=== PATIENT | female | born 1995 | race Caucasian/White ===

== ENCOUNTER → 2018-09-30 | Outpatient (CLI) | payer BC ==
[~2018-09-30] MED LIST: BENTYL10 MG PO; HYDR1TAB94 PO; ONDA4ODT MM; PROM25 PO; Pepcid40 MG PO; Verotin-Gr Cap1 EACH
== END | disposition home or self-care (01) ==
LOC: LAB SHORT 15:18 → LAB 15:18
DX: Z34.80 Encounter for supervision of other normal pregnancy, unspecified trimester (principal)
CPT/HCPCS: 87081; 87653

== ENCOUNTER 2018-10-23 09:58 | Inpatient (IN) | payer BC ==
[~2018-10-23] VITALS: Ht 162.6 cm; Wt 0.4 kg
[2018-10-23 10:43] LABS: BASOPHILS ABSOLUTE AUTO 0.02 K/mm3 (0.00-0.23); BASOPHILS PERCENT AUTO 0 % (0-2); EOSINOPHILS ABSOLUTE AUTO 0.28 K/mm3 (0.00-0.68); EOSINOPHILS PERCENT AUTO 2 % (0-6); Hematocrit 40.1 % (33.0-51.0); Hemoglobin 13.1 g/dL (11.5-16.0); IMMATURE GRAN ABSOLUTE AUTO 0.07 K/mm3 (0.00-0.10); IMMATURE GRAN PERCENT AUTO 1 % (0-1); LYMPHOCYTES ABSOLUTE AUTO 2.56 K/mm3 (0.84-5.20); LYMPHOCYTES PERCENT AUTO 21 % (21-46); MONOCYTES ABSOLUTE AUTO 0.63 K/mm3 (0.16-1.47); MONOCYTES PERCENT AUTO 5 % (4-13); Mean Corpuscular HGB 27.2 pg (26.0-34.0); Mean Corpuscular HGB Conc 32.7 g/dL (31.5-36.5); Mean Corpuscular Volume 83 fL (80-100); Mean Platelet Volume 9.9 fL (9.1-12.4); NEUTROPHILS ABSOLUTE AUTO 8.73 K/mm3 (1.96-9.15); NEUTROPHILS PERCENT AUTO 71 % (41-73); Platelet Count 221 K/mm3 (150-400); RDW Coefficient Variation 12.4 % (11.7-14.2); RDW Standard Deviation 37.9 fL (35.1-46.3); Red Blood Cell Count 4.81 M/mm3 (3.80-5.20); White Blood Cell Count 12.29 K/mm3 (4.00-11.30)
--- NOTE | 2018-10-23 21:00 | NUR ---
PATIENT C/O CHEST PAIN STATES THAT SHE HAS A DULL ACHE IN HER CHEST THAT INCREASES WITH AMBULATION. PATIENT RATES PAIN AT A 2 AND BELIEVES IT TO BE MUSCLE PAIN RELATED TO PUSHING DURING DELIVERY. VITALS ARE STABLE AND WITHIN NORMAL RANGE, DELICATESSEN STORE MANAGER NOTIFIED. MOTRIN ADMINISTERED.
--- NOTE | 2018-10-24 00:58 | NUR ---
PATIENT C/O INCREASED ABDOMINAL PAIN RATES PAIN AT A 5 DESCRIBES CRAMPING, PATIENT OFFERED PERCOCET, PATIENT REFUSED SAYING THAT PERCOCET MAKES HER VOMIT. TYLENOL WAS GIVEN AND A HEATING PAD WAS PROVIDED.
[2018-10-24 05:32] LABS: Hematocrit 34.6 % (33.0-51.0); Hemoglobin 11.4 g/dL (11.5-16.0); Mean Corpuscular HGB 28.1 pg (26.0-34.0); Mean Corpuscular HGB Conc 32.9 g/dL (31.5-36.5); Mean Corpuscular Volume 85 fL (80-100); Mean Platelet Volume 9.9 fL (9.1-12.4); Platelet Count 195 K/mm3 (150-400); RDW Coefficient Variation 12.6 % (11.7-14.2); RDW Standard Deviation 38.2 fL (35.1-46.3); Red Blood Cell Count 4.06 M/mm3 (3.80-5.20); White Blood Cell Count 13.85 K/mm3 (4.00-11.30)
[2018-10-24] MEDS ORDERED: DOCU100 PO (10:19)
[2018-10-24] MEDS ORDERED: Ferrous Sulfat325 M2 PO (10:19)
--- NOTE | 2018-10-24 11:56 | NUR ---
DISCHARGE INSTRUCTIONS GIVEN. ALL QUESTIONS ANSWERED.
--- NOTE | 2018-10-24 12:20 | NUR ---
PATIENT DISCHARGED HOME AT 1220.
== END 2018-10-24 12:20 | disposition home or self-care (01) | DRG 807 ==
LOC: OBS 09:58 → BC 10:04 → OBS 10:12 → BC 10:16
PROVIDERS: ADMIT Advanced Practice Midwife
PROC: 10E0XZZ Delivery of Products of Conception, External Approach (ICD-10-PCS; principal; 2018-10-23)
DX: O80 Encounter for full-term uncomplicated delivery (principal); Z37.0 Single live birth; Z3A.39 39 weeks gestation of pregnancy
CPT/HCPCS: 36415; 85025; 85027; J1885; J2590; J7120

== ENCOUNTER → 2021-05-29 | Outpatient (CLI) | payer OTHER ==
[~2021-05-29] MED LIST changes: +DOCU100 PO; +Ferrous Sulfat325 M2 PO
== END | disposition home or self-care (01) ==
LOC: LAB 15:15 → LAB SHORT 15:15
DX: J02.9 Acute pharyngitis, unspecified (principal)
CPT/HCPCS: 87081

== ENCOUNTER 2025-01-12 10:03 | Day surgery (SDC) | payer OTHER ==
[~2025-01-12] VITALS: Ht 162.6 cm; Wt 94.3 kg
[2025-01-12] VITALS (14 sets, daily range): BP systolic 101–157; BP diastolic 57–102
[~2025-01-12 10:03] MED LIST changes: +AMLO5 PO; +BUSP5 PO; +Prozac40 MG PO
[2025-01-12] MEDS ORDERED: Tranexamic Acid 100 ML IV SCH (10:50)
[2025-01-12] MEDS ORDERED: Lactated Ringer's 1,000 ML IV SCH (10:50)
[2025-01-12] MEDS ORDERED: CeFAZolin Sodium 2,000 MG in NS 100 ML IV SCH (10:50)
[2025-01-12] MEDS ORDERED: BUPR100ER PO (10:57)
[2025-01-12] MEDS ORDERED: Orphenadrine C100 MG PO (10:58)
[2025-01-12] MEDS ORDERED: FentaNYL Citrate 50 MCG/ML 2 ML Injection ONE ×4 (11:26→15:54)
[2025-01-12] MEDS ORDERED: propofoL 20 ML IV ONE (11:26)
[2025-01-12] MEDS ORDERED: Midazolam HCl 1MG / ML 2ML Vial ONE (11:27)
[2025-01-12] MEDS ORDERED: Bupivacaine 0.5% HCl 5 MG/ML 30MLVIAL ONE (11:29)
[2025-01-12] MEDS ORDERED: Bupivacaine HCl 0.25% 30 ML Injection ONE (11:29)
[2025-01-12] MEDS ORDERED: EPINEPhrine HCl 1 MG / ML 30ML Vial ONE (12:08)
--- NOTE | 2025-01-12 12:13 | NUR ---
DR. STARKS AT BESIDE. TIME OUT DONE FOR SAPHENOUS/GENICULAR NERVE BLOCKS. O2 AT 2 L N/C. CONTINUOUS SPO2 IN PLACE. MEDS PER DR. STARKS-SEE ANESTHESIA RECORD.
[2025-01-12] MEDS ORDERED: Vancomycin HCl 1000 MG ADDvantage ONE (13:32)
[2025-01-12] MEDS ORDERED: Albuterol 2.5 MG/3 ML VIAL INH PRN (14:20)
[2025-01-12] MEDS ORDERED: Atropine Sulfate 0.1 MG/ML 10ML SYR IV PRN (14:20)
[2025-01-12] MEDS ORDERED: Ondansetron HCl 2 MG / ML 2ML Vial IV PRN (14:25)
[2025-01-12] MEDS ORDERED: HYDROmorphone HCl/Pf 1MG SYR IV PRN (14:25)
[2025-01-12] MEDS ORDERED: FentaNYL Citrate 50 MCG/ML 2 ML Injection IV PRN ×2 (14:25)
[2025-01-12] MEDS ORDERED: Metoclopramide HCl 5MG / ML 2ML Vial IV PRN (14:25)
[2025-01-12] MEDS ORDERED: Labetalol HCL 5 MG/ML 4ML Injection (Single Dose) IV PRN (14:25)
[2025-01-12] MEDS ORDERED: Ketorolac Tromethamine 30mg Vial ONE (15:01)
[2025-01-12] MEDS ORDERED: HYDROmorphone HCl/Pf 1MG SYR ONE (15:14)
[2025-01-12] MEDS ORDERED: Metoclopramide HCl 5MG / ML 2ML Vial ONE (15:19)
[2025-01-12] MEDS ORDERED: OxyCODONE HCL 5 MG TAB PO PRN (16:00)
--- NOTE | 2025-01-12 16:37 | NUR ---
DISCHARGE PT A&OX4/VSS/RA/C&DBS/FOLLOWS COMMANDS/TALKING-PLEASANT/EAR NOSE AND THROAT SPECIALIST BEDSIDE, DC INS PROVIDED - REP UNDERSTANDING INCLUDING CRUTCHES/NWB/PAIN MANAGEMENT/ELEVATED/ ICED/FU APPT, LEFT VIA WC WITH RN TO GO HOME WITH EAR NOSE AND THROAT SPECIALIST WITH ALL PERSONAL POSSESSIONS.
== END 2025-01-12 23:37 | disposition home or self-care (01) ==
LOC: ORSCMMR 10:03 → ORD 11:15 → ORSCMMR 11:15 → ORSCSDS 11:15 → ORSCMMR 23:37 → ORSCSDS 01-24 07:30
PROVIDERS: Orthopaedic Surgery Sports Medicine
PROC: 0MRN47Z Replacement of Right Knee Bursa and Ligament with Autologous Tissue Substitute, Percutaneous Endoscopic Approach (ICD-10-PCS; principal; 2025-01-12 11:15)
DX: S83.511A Sprain of anterior cruciate ligament of right knee, initial encounter (principal); M23.203 Derangement of unspecified medial meniscus due to old tear or injury, right knee; X50.1XXA Overexertion from prolonged static or awkward postures, initial encounter; Y93.01 Activity, walking, marching and hiking; I10 Essential (primary) hypertension; F41.9 Anxiety disorder, unspecified; F32.A Depression, unspecified; Z79.899 Other long term (current) drug therapy; E66.9 Obesity, unspecified; Z68.35 Body mass index [BMI] 35.0-35.9, adult
CPT/HCPCS: C1713; C1762; C1889; J0171; J0690; J1171; J1885; J2250; J2405; J2704; J2765; J3010; J3370; J7120

== ENCOUNTER → 2025-03-10 | Outpatient (CLI) | payer OTHER ==
[~2025-03-10] MED LIST changes: +BUPR100ER PO; +Orphenadrine C100 MG PO
== END ==
LOC: LAB 18:59 → LAB SHORT 18:59
DX: N39.0 Urinary tract infection, site not specified (principal); R31.9 Hematuria, unspecified
CPT/HCPCS: 87086